=== PATIENT | male | born 1955 | race Caucasian/White ===

== ENCOUNTER 2022-08-19 16:17 | Inpatient (IN) ==
--- NOTE | 2022-08-19 18:20 | XRay Report ---
XR chest 1V not portable CLINICAL HISTORY: Chest pain, nonspecific TECHNIQUE: Single frontal radiograph of the chest was obtained. Comparison: None available at the time of this dictation. FINDINGS: No lines and tubes are seen. The cardiomediastinal silhouette is normal. The lungs are clear. No evid ence of pleural effusion or pneumothorax. IMPRESSION: No acute chest disease. ACT 112: Negative or not required by law. Electronically signed by: Bulmaro Aldana M.D. 08/19/2022 6:19 PM
[2022-08-19 18:36] LABS: Hematocrit (blood only) 39.9 % (42.0-52.0); Hemoglobin 14.1 g/dl (14.0-18.0); Mean Corpuscular Hemoglobin 29.6 pg (25.0-34.0); Mean Corpuscular Hgb Conc 35.3 g/dL (32.0-36.0); Mean Corpuscular Volume 83.8 fL (80.0-100.0); Mean Platelet Volume 12.4 fL (9.4-12.4); Platelet Count 111 K/uL (130-400); RDW Coefficient of Variation 13.6 % (11.5-14.5); RDW Standard Deviation 41.9 fL (36.4-46.3); Red Blood Count 4.76 M/uL (4.70-6.10); White Blood Count 5.84 K/ul (4.8-10.8)
[2022-08-19 18:47] LABS: Albumin Globulin Ratio 1.1 (0.9-2); BUN Creatinine Ratio 12.7 (10-20); Bilirubin,Total 0.7 mg/dl (0.2-1.0); Calcium 9.5 mg/dl (8.6-10.3); Creatinine Clr Calc Pharmacy 60.3 ml/min; Est GFR (African American) 60.1 ml/min; Est GFR (Non-African American) 51.8 ml/min; Globulin 3.8 gm/dl (2.5-4.0); Total Protein 7.8 gm/dl (6.0-8.3)
[2022-08-19 18:53] LABS: Troponin I High Sensitivity 7.8 pg/ml (0-20)
[2022-08-19 19:13] LABS: Appearance Urine Clear (Clear); Bacteria Urine Automated Negative (Negative); Blood Urine Negative (Negative); Color Urine Orange; Glucose Urine UA Negative (Negative); Ketones Urine Trace (Negative); Leukocyte Esterase Urine Trace (Negative); Nitrite Urine Positive (Negative); Protein Urine 1+ (Negative); RBC Urine Automated 0-4 /hpf (0-4); Specific Gravity Urine 1.032 (1.000-1.030); Urobilinogen Urine Negative (Negative); pH Urine 5.5 (4.5-7.5)
[2022-08-19] MEDS ORDERED: SODIUM CHLORIDE 0.9% 1000ML 1,000 ML IV ONE ×2 (19:21→22:24)
[2022-08-19 19:34] LABS: Basophils # (auto) 0.06 K/uL (0-0.2); Eosinophils # (auto) 0.04 K/uL (0-0.50); Eosinophils % (auto) 0.7 %; Immature Granulocytes # (auto) 0.01 K/uL (0.01-0.20); Immature Granulocytes % (auto) 0.2 %; Lymphocytes % (auto) 70.2 %; Monocytes # (auto) 0.35 K/uL (0.11-0.59); Neutrophils # (auto) 1.28 K/uL (1.40-6.50); Neutrophils % (auto) 21.9 %
--- NOTE | 2022-08-19 19:40 | Emergency Department Note ---
Impression & Plan Weakness, Hypomagnesemia, Thrombocytopenia, WALLY (acute kidney injury) ED Provider Note NAME: GORDON DIALLO AGE: 66 SEX: M : 1955 ARRIVES VIA: Walk-In INFORMANT: [Patient] ED PROVIDER(S): [Kermit Russ MD] CHIEF COMPLAINT: Cardiac assessment HISTORY OF PRESENT ILLNESS: The patient is a 66-year-old male who presents to the ED with complaints of potential dehydration. His legs feel weak, his urine is dark. He has had some chills and sweats. There has been no cough or congestion. He is not short of breath. No abdominal pain. No vomiting or diarrhea although, he has no appetite. The patient was discharged from [facility] yesterday. He was admitted for 3 days because of dehydration, an elevated creatinine and low platelets. The patient presents today because he feels like he is again getting worse. He states no real reason for his findings was found by the [facility]. PMHx/PSHx: See Below SOCIAL HISTORY: See Below. PHYSICAL EXAM: GENERAL: Patient is in no acute distress. HEENT: No acute trauma, normocephalic atraumatic, mucous membranes moist, no n danae congestion. NECK: No stridor, no adenopathy, no meningismus, trachea is midline. LUNGS: Clear to auscultation bilaterally, no wheeze, no rhonchi, breath sounds equal. HEART: Without murmurs gallops or rubs, regular rate and rhythm. ABDOMEN: Soft, nontender, bowel sounds positive, no peritonitis. EXTREMITIES: No cyanosis or edema, full range of motion of all the joints without pain or difficulty, no signs for acute trauma. NEUROLOGIC: Oriented x 3, no acute motor or sensory deficits, no focal weakness. SKIN: No rash, no jaundice, no diaphoresis. DIFFERENTIAL DIAGNOSIS: Anaplasmosis, tickborne illness, dehydration, electrolyte imbalance, UTI, renal or liver failure, among others. EMERGENCY DEPARTMENT COURSE/PROCEDURES: Prior/Outside records reviewed: None. ECG per my interpretation: Indication was weakness. The ECG shows a normal sinus rhythm with a rate of 92. There is no ST elevation, no PVCs. The QTc is 413. Continuous Cardiac Monitoring per my interpretation: An order was placed for continuous cardiac monitoring. The monitor shows a rate of 87 with normal sinus rhythm. MEDICAL DECISION MAKING: There is no leukocytosis or concerning anemia. Platelet count is low at 111. No coagulopathy. Sodium slightly low at 132. There was some mild acute kidney injury with a creatinine of 1.42. Magnesium was low at 1.6. AST was slightly e levated, the bilirubin was normal. Total CK was not elevated making rhabdomyolysis unlikely. ECG showed a normal sinus rhythm, no ST elevation. Cardiac enzyme testing x1 is not consistent with acute cardiac injury. Urinalysis showed an orange-colored urine that was nitrite positive. No white cells or bacteria to suggest infection. Anaplasmosis and Babesia smears were negative. Send out testing for anaplasmosis and Babesia is pending. Lyme disease testing returned negative. Chest x-ray did not show mediastinal widening, pneumonia or pneumothorax per my review. The patient was given IV saline, 1 L. He was given IV lactated Ringer's, 1 L. He was given IV doxycycline and IV magnesium. The patient presents with fever, weakness. He does have some electrolyte abnormalities and some mild acute kidney injury. With his fever history, with the lower platelet count, I am concerned about the possibility of anaplasmosis. Patient is in no condition for discharge home. He just left [facility] yesterday. I did speak with the patient at length, I spoke with case management, the on-call hospitalist was consulted. DISPOSITION: The patient's presentation and findings warrant a hospital stay. Past Med/Surg History Medical History Acquired thrombocytopenia WALLY (acute kidney injury) Social History Smoking Status: Never smoker Feels Safe at Home: Yes Allergies Allergies Allergy/AdvReac Type Severity Reaction Status Date / Time Penicillins Allergy Severe Anaphylaxis Unverified 08/19/22 19:17 Sulfa (Sulfonamide Allergy Severe Gastrointestinal Unverified 08/19/22 19:17 Antibiotics) Upset Home Meds Home Medications Medication Instructions Recorded Confirmed carvedilol 3.125 mg tablet (Coreg) 3.125 mg PO BID 08/19/22 08/19/22 cyanocobalamin (vitamin B-12) 1,000 mcg sublingual DAILY 08/19/22 08/19/22 1,000 mcg sublingual tablet omeprazole 20 mg capsule,delayed 20 mg PO BID 08/19/22 08/19/22 release Results & Data (ED) Vital Signs Vital Signs - 24 hr 08/19/22 16:51 08/19/22 18:52 08/19/22 18:52 Temperature 37.2 C Temperature Source Temporal Artery Scan Pulse Rate 97 H Pulse Rate from SpO2 Sensor Respiratory Rate 18 15 Respiratory Effort / Characteristics Non-Labored Spontaneous Respiratory Depth Normal Respiratory Pattern Regular Blood Pressure 129/78 Blood Pressure Mean 95 Blood Pressure Position Sitting Pulse Oximetry 98 97 98 Oxygen Delivery Method Room Air Room Air Oxygen Flow Rate 0 Sepsis Recent Fever Within 48 Hours No Sepsis New/Unexplained Change in Mental Status N/A Sepsis Action Taken by Nursing No Action Required 08/19/22 18:56 08/19/22 18:57 08/19/22 19:00 Temperature Temperature Source Pulse Rate 85 Pulse Rate from SpO2 Sensor Respiratory Rate 19 Respiratory Effort / Characteristics Respiratory Depth Respiratory Pattern Blood Pressure 131/78 126/84 Blood Pressure Mean 113 99 Blood Pressure Position Pulse Oximetry Oxygen Delivery Method Oxygen Flow Rate Sepsis Recent Fever Within 48 Hours Sepsis New/Unexplained Change in Mental Status Sepsis Action Taken by Nursing 08/19/22 19:00 08/19/22 19:10 08/19/22 19:20 Temperature Temperature Source Pulse Rate 87 84 90 Pulse Rate from SpO2 Sensor 85 84 Respiratory Rate 18 19 22 Respiratory Effort / Characteristics Respiratory Depth Respiratory Pattern Blood Pressure Blood Pressure Mean Blood Pressure Position Pulse Oximetry 95 94 Oxygen Delivery Method Oxygen Flow Rate Sepsis Recent Fever Within 48 Hours Sepsis New/Unexplained Change in Mental Status Sepsis Action Taken by Nursing 08/19/22 19:30 08/19/22 19:30 08/19/22 19:40 Temperature Temperature Source Pulse Rate 87 83 Pulse Rate from SpO2 Sensor 88 83 Respiratory Rate 21 16 Respiratory Effort / Characteristics Respiratory Depth Respiratory Pattern Blood Pressure 126/98 Blood Pressure Mean 100 Blood Pressure Position Pulse Oximetry 95 95 Oxygen Delivery Method Oxygen Flow Rate Sepsis Recent Fever Within 48 Hours Sepsis New/Unexplained Change in Mental Status Sepsis Action Taken by Nursing 08/19/22 19:50 08/19/22 20:00 08/19/22 20:00 Temperature Temperature Source Pulse Rate 80 79 Pulse Rate from SpO2 Sensor 79 78 Respiratory Rate 21 23 Respiratory Effort / Characteristics Respiratory Depth Respiratory Pattern Blood Pressure 128/78 Blood Pressure Mean 87 Blood Pressure Position Pulse Oximetry 96 96 Oxygen Delivery Method Oxygen Flow Rate Sepsis Recent Fever Within 48 Hours Sepsis New/Unexplained Change in Mental Status Sepsis Action Taken by Nursing 08/19/22 20:10 08/19/22 20:20 08/19/22 20:30 Temperature Temperature Source Pulse Rate 78 81 Pulse Rate from SpO2 Sensor 78 80 Respiratory Rate 18 23 Respiratory Effort / Characteristics Respiratory Depth Respiratory Pattern Blood Pressure 129/76 Blood Pressure Mean 88 Blood Pressure Position Pulse Oximetry 94 95 Oxygen Delivery Method Oxygen Flow Rate Sepsis Recent Fever Within 48 Hours Sepsis New/Unexplained Change in Mental Status Sepsis Action Taken by Nursing 08/19/22 20:30 08/19/22 20:40 08/19/22 20:50 Temperature Temperature Source Pulse Rate 79 80 82 Pulse Rate from SpO2 Sensor 80 80 81 Respiratory Rate 21 21 24 Respiratory Effort / Characteristics Respiratory Depth Respiratory Pattern Blood Pressure Blood Pressure Mean Blood Pressure Position Pulse Oximetry 94 93 92 Oxygen Delivery Method Oxygen Flow Rate Sepsis Recent Fever Within 48 Hours Sepsis New/Unexplained Change in Mental Status Sepsis Action Taken by Jail Medications Current Medication List: was personally reviewed by me Laboratory Data Attestation: I reviewed the patient's lab results. 08/19/22 18:13 08/19/22 18:13 Lab Results 08/19/22 08/19/22 08/19/22 Range/Units 18:05 18:13 18:13 WBC 5.84 (4.8-10.8) K/ul RBC 4.76 (4.70-6.10) M/uL Hgb 14.1 (14.0-18.0) g/dl Hct 39.9 L (42.0-52.0) % MCV 83.8 (80.0-100.0) fL MCH 29.6 (25.0-34.0) pg MCHC 35.3 (32.0-36.0) g/dL RDW Std Deviation 41.9 (36.4-46.3) fL RDW Coeff of Sergio 13.6 (11.5-14.5) % Plt Count 111 L (130-400) K/uL MPV 12.4 (9.4-12.4) fL Immature Gran % (Auto) 0.2 % Neut % (Auto) 21.9 % Lymph % (Auto) 70.2 % [place] % (Auto) 6.0 % Eos % (Auto) 0.7 % Baso % (Auto) 1.0 % Neut # (Auto) 1.28 L (1.40-6.50) K/uL Lymph # (Auto) 4.10 H (1.2-3.4) K/uL [place] # (Auto) 0.35 (0.11-0.59) K/uL Eos # (Auto) 0.04 (0-0.50) K/uL Baso # (Auto) 0.06 (0-0.2) K/uL Immature Gran # (Auto) 0.01 (0.01-0.20) K/uL PT Cancelled INR Cancelled APTT Cancelled PTT Ratio Cancelled Sodium 132 L (136-145) mmol/L Potassium 4.0 (3.5-5.1) mmol/L Chloride 100 (98-107) mmol/L Carbon Dioxide 23 (21-32) mmol/L Anion Gap 9 (3-11) BUN 18 (6-23) mg/dl Creatinine 1.42 H (0.6-1.4) mg/dl Est Cr Clr Drug Dosing 60.3 ml/min Est GFR ( Amer) 60.1 ml/min Est GFR (Non-Af Amer) 51.8 ml/min BUN/Creatinine Ratio 12.7 (10-20) Glucose 115 H (70-99(Fasting)) mg/dl Calcium 9.5 (8.6-10.3) mg/dl Magnesium (1.7-2.4) mg/dl Total Bilirubin 0.7 (0.2-1.0) mg/dl AST 58 H (13-39) U/L ALT 34 (7-52) U/L Alkaline Phosphatase 73 (34-104) U/L Total Creatine Kinase (30-223) U/L Troponin I High Sens 7.8 (0-20) pg/ml Total Protein 7.8 (6.0-8.3) gm/dl Albumin 4.0 (3.4-5.0) gm/dl Globulin 3.8 (2.5-4.0) gm/dl Albumin/Globulin Ratio 1.1 (0.9-2) Urine Color Urine Appearance (Clear) Urine pH (4.5-7.5) Ur Specific [place] (1.000-1.030) Urine Protein (Negative) Urine Glucose (UA) (Negative) Urine Ketones (Negative) Urine Blood (Negative) Urine Nitrite (Negative) Urine Bilirubin (Negative) Urine Urobilinogen (Negative) Ur Leukocyte Esterase (Negative) Urine WBC (Auto) (0-5) /hpf Urine RBC (Auto) (0-4) /hpf U Hyaline Cast (Auto) (0-5) /lpf U Epithel Cells (Auto) (0-5) /lpf Urine Bacteria (Auto) (Negative) Anaplasma Smear Babesia Smear Lyme Disease IgG Ab (Negative) Lyme Disease IgM Ab (Negative) 08/19/22 08/19/22 08/19/22 Range/Units 18:13 19:00 19:32 WBC (4.8-10.8) K/ul RBC (4.70-6.10) M/uL Hgb (14.0-18.0) g/dl Hct (42.0-52.0) % MCV (80.0-100.0) fL MCH (25.0-34.0) pg MCHC (32.0-36.0) g/dL RDW Std Deviation (36.4-46.3) fL RDW Coeff of Sergio (11.5-14.5) % Plt Count (130-400) K/uL MPV (9.4-12.4) fL Immature Gran % (Auto) % Neut % (Auto) % Lymph % (Auto) % [place] % (Auto) % Eos % (Auto) % Baso % (Auto) % Neut # (Auto) (1.40-6.50) K/uL Lymph # (Auto) (1.2-3.4) K/uL [place] # (Auto) (0.11-0.59) K/uL Eos # (Auto) (0-0.50) K/uL Baso # (Auto) (0-0.2) K/uL Immature Gran # (Auto) (0.01-0.20) K/uL PT 11.9 INR 1.1 APTT 25.7 PTT Ratio 0.9 Sodium (136-145) mmol/L Potassium (3.5-5.1) mmol/L Chloride (98-107) mmol/L Carbon Dioxide (21-32) mmol/L Anion Gap (3-11) BUN (6-23) mg/dl Creatinine (0.6-1.4) mg/dl Est Cr Clr Drug Dosing ml/min Est GFR ( Amer) ml/min Est GFR (Non-Af Amer) ml/min BUN/Creatinine Ratio (10-20) Glucose (70-99(Fasting)) mg/dl Calcium (8.6-10.3) mg/dl Magnesium (1.7-2.4) mg/dl Total Bilirubin (0.2-1.0) mg/dl AST (13-39) U/L ALT (7-52) U/L Alkaline Phosphatase (34-104) U/L Total Creatine Kinase (30-223) U/L Troponin I High Sens (0-20) pg/ml Total Protein (6.0-8.3) gm/dl Albumin (3.4-5.0) gm/dl Globulin (2.5-4.0) gm/dl Albumin/Globulin Ratio (0.9-2) Urine Color [place] Urine Appearance Clear (Clear) Urine pH 5.5 (4.5-7.5) Ur Specific [place] 1.032 H (1.000-1.030) Urine Protein 1+ H (Negative) Urine Glucose (UA) Negative (Negative) Urine Ketones Trace H (Negative) Urine Blood Negative (Negative) Urine Nitrite Positive A (Negative) Urine Bilirubin 1+ H (Negative) Urine Urobilinogen Negative (Negative) Ur Leukocyte Esterase Trace H (Negative) Urine WBC (Auto) 1-5 (0-5) /hpf Urine RBC (Auto) 0-4 (0-4) /hpf U Hyaline Cast (Auto) 10-30 H (0-5) /lpf U Epithel Cells (Auto) 10-20 H (0-5) /lpf Urine Bacteria (Auto) Negative (Negative) Anaplasma Smear See Comment Babesia Smear See Comment Lyme Disease IgG Ab (Negative) Lyme Disease IgM Ab (Negative) 08/19/22 08/19/22 Range/Units 19:32 19:32 WBC (4.8-10.8) K/ul RBC (4.70-6.10) M/uL Hgb (14.0-18.0) g/dl Hct (42.0-52.0) % MCV (80.0-100.0) fL MCH (25.0-34.0) pg MCHC (32.0-36.0) g/dL RDW Std Deviation (36.4-46.3) fL RDW Coeff of Sergio (11.5-14.5) % Plt Count (130-400) K/uL MPV (9.4-12.4) fL Immature Gran % (Auto) % Neut % (Auto) % Lymph % (Auto) % [place] % (Auto) % Eos % (Auto) % Baso % (Auto) % Neut # (Auto) (1.40-6.50) K/uL Lymph # (Auto) (1.2-3.4) K/uL [place] # (Auto) (0.11-0.59) K/uL Eos # (Auto) (0-0.50) K/uL Baso # (Auto) (0-0.2) K/uL Immature Gran # (Auto) (0.01-0.20) K/uL PT INR APTT PTT Ratio Sodium (136-145) mmol/L Potassium (3.5-5.1) mmol/L Chloride (98-107) mmol/L Carbon Dioxide (21-32) mmol/L Anion Gap (3-11) BUN (6-23) mg/dl Creatinine (0.6-1.4) mg/dl Est Cr Clr Drug Dosing ml/min Est GFR ( Amer) ml/min Est GFR (Non-Af Amer) ml/min BUN/Creatinine Ratio (10-20) Glucose (70-99(Fasting)) mg/dl Calcium (8.6-10.3) mg/dl Magnesium 1.6 L (1.7-2.4) mg/dl Total Bilirubin (0.2-1.0) mg/dl AST (13-39) U/L ALT (7-52) U/L Alkaline Phosphatase (34-104) U/L Total Creatine Kinase 113 (30-223) U/L Troponin I High Sens (0-20) pg/ml Total Protein (6.0-8.3) gm/dl Albumin (3.4-5.0) gm/dl Globulin (2.5-4.0) gm/dl Albumin/Globulin Ratio (0.9-2) Urine Color Urine Appearance (Clear) Urine pH (4.5-7.5) Ur Specific [place] (1.000-1.030) Urine Protein (Negative) Urine Glucose (UA) (Negative) Urine Ketones (Negative) Urine Blood (Negative) Urine Nitrite (Negative) Urine Bilirubin (Negative) Urine Urobilinogen (Negative) Ur Leukocyte Esterase (Negative) Urine WBC (Auto) (0-5) /hpf Urine RBC (Auto) (0-4) /hpf U Hyaline Cast (Auto) (0-5) /lpf U Epithel Cells (Auto) (0-5) /lpf Urine Bacteria (Auto) (Negative) Anaplasma Smear Babesia Smear Lyme Disease IgG Ab Negative (Negative) Lyme Disease IgM Ab Negative (Negative) Administered Medications Lactated Ringer's (Lr) 1,000 mls @ 999 mls/hr IV .Q1H1M ONE Stop: 08/19/22 22:34 Last Admin: 08/19/22 21:46 Dose: 999 mls/hr Documented By: CIRA Discontinued Medications Sodium Chloride (Nss 1000ml) 1,000 mls @ 999 mls/hr IV .Q1H1M ONE Stop: 08/19/22 20:21 Last Infusion: 08/19/22 20:39 Dose: 0 mls/hr Documented By: Admin: 08/19/22 19:34 Dose: 999 mls/hr Documented By: CIRA Magnesium Sulfate/Dextrose (Magnesium Sulfate / D5w) 1 gm in 100 mls @ 100 mls/hr IV NOW STA Stop: 08/19/22 21:15 Last Infusion: 08/19/22 21:31 Dose: 0 mls/hr Documented By: Admin: 08/19/22 20:30 Dose: 100 mls/hr Documented By: CIRA Imaging Data Radiologist's Impression: Chest X-Ray 08/19/22 16:59 XR chest 1V not portable CLINICAL HISTORY: Chest pain, nonspecific TECHNIQUE: Single frontal radiograph of the chest was obtained. Comparison: None available at the time of this dictation. FINDINGS: No lines and tubes are seen. The cardiomediastinal silhouette is normal. The lungs are clear. No evidence of pleural effusion or pneumothorax. IMPRESSION: No acute chest disease. ACT 112: Negative or not required by law. Electronically signed by: Bulmaro Aldana M.D. 08/19/2022 6:19 PM Discharge Plan Visit Data Chief Complaint: Cardiac Assessment Stated Complaint: NEAR SYNCOPE,CHEST ISSUES,CHANGE MEDS ED Provider: Kermit Russ Discharge Problem: Weakness, Hypomagnesemia, Thrombocytopenia, WALLY (acute kidney injury) Patient Disposition: Admitted As Inpatient Condition: Fair Forms Stand Alone Forms: My [facility] Prescriptions Prescriptions: No Action carvedilol [Coreg] 3.125 mg Tablet 3.125 mg PO BID Rx Instructions: must administer with a meal/food omeprazole 20 mg Capsule,Delayed Release(Dr/Ec) 20 mg PO BID cyanocobalamin (vitamin B-12) [Vitamin B-12] 1,000 mcg Tablet, Sublingual 1,000 mcg SUBLINGUAL DAILY Referrals Referrals: PCP,NO [Physician] -
[2022-08-19 20:10] LABS: Bilirubin Urine 1+ (Negative)
[2022-08-19 20:15] LABS: Magnesium 1.6 mg/dl (1.7-2.4)
[2022-08-19] MEDS ORDERED: MAGNESIUM SULFATE / D5W 1 GM/100 ML BAG IV STA (20:16)
[2022-08-19 20:30] LABS: INR 1.1 (0.9-1.1); Partial Thromboplastin Ratio 0.9; Partial Thromboplastin Time 25.7 Seconds (21.0-31.0); Prothrombin Time 11.9 Seconds (9.0-12.0)
[2022-08-19 20:39] LABS: Lyme Ab IgG w/WB Rflx Negative (Negative); Lyme Ab IgM w/WB Rflx Negative (Negative)
[2022-08-19] MEDS ORDERED: LACTATED RINGER'S 1,000 ML IV ONE (21:34)
[2022-08-19] MEDS ORDERED: DOXYCYCLINE HYCLATE 100 MG in DEXTROSE 5% 100 ML IV STA (21:34)
[2022-08-19] MEDS ORDERED: cefTRIAXone SODIUM 2,000 MG/70 ML BAG IV STA (23:56)
--- NOTE | 2022-08-20 00:18 | History & Physical Report ---
Date of Service August 20, 2022 Assessment & Plan (1) Complicated UTI (urinary tract infection): Plan: No overt sepsis for now Mild hyponatremia, ARF secondary to illness PSVT, currently on Coreg HCV status post Rx GERD/Ramirez's esophagus, stable on regimen chronic thrombocytopenia secondary to cirrhosis Hyperglycemia rule out DM GMF CS, Ceftriaxone Monitor creatinine response to IVF Check hemoglobin A1c PT OT eval DVT prophylaxis. SCDs Re: Thrombocytopenia Full code Text document was generated using [employer] voice recognition software. It may contain grammatical or spelling errors. Kindly contact undersigned for clarification of any documentation item in question. History of Present Illness Chief Complaint: Bilateral leg weakness, chills, sweats Primary Care Provider: Edgardo Milner PA-C History obtained from patient and records. Medical history significant for PSVT, HCV status post Rx, GERD/Ramirez's esophagus, chronic thrombocytopenia. Recent confinement at [facility] August 15 to 2022 for PSVT. Patient started on Coreg. Lisinopril stopped on discharge. Outpatient Zio patch recommended. Yesterday morning, patient noted chills, sweats, bilateral LE weakness. No headache, no chest pain, no SOB, no belly pain. Denies dysuria. Tick bite a few weeks ago. Patient consulted ER. Doxycycline given for possible tickborne infection. Medical History as above Surgical History : Multiple right tibia/fibula surgeries, myringotomy, tonsillectomy/adenectomy, umbilical hernia repair, Family History : Heart disease, lung cancer, Parkinson's Personal/Social history : Non-smoker, no EtOH intake, [employer] employee Allergies Allergy/AdvReac Type Severity Reaction Status Date / Time Penicillins Allergy Severe Anaphylaxis Verified 08/20/22 00:59 Sulfa (Sulfonamide Allergy Severe Gastrointestinal Unverified 08/19/22 19:17 Antibiotics) Upset Home Medications Medication Instructions Recorded Confirmed Type carvedilol 3.125 mg tablet (Coreg) 3.125 mg PO BID 08/19/22 08/19/22 History cyanocobalamin (vitamin B-12) 1,000 mcg sublingual DAILY 08/19/22 08/19/22 History 1,000 mcg sublingual tablet omeprazole 20 mg capsule,delayed 20 mg PO BID 08/19/22 08/19/22 History release Past Med/Surg History Medical History Acquired thrombocytopenia WALLY (acute kidney injury) Social History Smoking Status: Never smoker Hx Alcohol Use: No Hx Substance Use: No Preferred Language: Telugu Communication Ability: Effective Client Success Specialist Required: No Beliefs That Will Affect Care: Restoration Restoration Beliefs: Confucianism Current Living Situation: Spouse Feels Safe at Home: Yes Safety Concerns: Feels Safe At This Time Assistive Devices: None Review of Systems Review of Systems: As per HPI, all other systems reviewed and negative Physical Exam Physical Exam: GENERAL: Comfortable, slightly anxious, obese, no respiratory distress SKIN: Pallor, warm HEENT: Alopecia, pale palpebral conjunctivae, no ptosis, dry buccal mucosa NECK : Supple, short neck, no tenderness CHEST : CTA, no tenderness HEART : RRR, no obvious murmurs ABDOMEN: Some distention, nontender EXTREMITIES : No LE swelling/tenderness, no other conspicuous deformities noted NEUROLOGIC : Coherent, no facial asymmetry, no other gross focality Results & Data Results & Data Vital Signs (Past 12 Hours) Vital Signs Temp Pulse Resp BP Pulse Ox O2 Del Method O2 Flow Rate 08/20/22 00:00 77 21 126/73 96 08/19/22 23:30 75 24 94 08/19/22 22:30 78 15 94 08/19/22 22:30 134/75 08/19/22 22:20 74 15 93 08/19/22 22:10 75 23 93 08/19/22 22:00 75 15 92 08/19/22 22:00 134/80 08/19/22 21:50 77 24 92 08/19/22 21:40 75 15 92 08/19/22 21:30 80 23 93 08/19/22 21:30 120/71 08/19/22 21:20 81 15 93 08/19/22 21:10 78 15 92 08/19/22 21:00 79 20 92 08/19/22 21:00 133/76 08/19/22 20:50 82 24 92 08/19/22 20:40 80 21 93 08/19/22 20:30 79 21 94 08/19/22 20:30 129/76 08/19/22 20:20 81 23 95 08/19/22 20:10 78 18 94 08/19/22 20:00 79 23 96 08/19/22 20:00 128/78 08/19/22 19:50 80 21 96 08/19/22 19:40 83 16 95 08/19/22 19:30 87 21 95 08/19/22 19:30 126/98 08/19/22 19:20 90 22 08/19/22 19:10 84 19 94 08/19/22 19:00 87 18 95 08/19/22 19:00 126/84 08/19/22 18:57 85 19 08/19/22 18:56 131/78 08/19/22 18:52 15 98 08/19/22 18:52 97 Room Air 0 08/19/22 16:51 37.2 C 97 H 18 129/78 98 Room Air Laboratory Results Laboratory Results WBC 5.84 K/ul (4.8-10.8) 08/19/22 18:13 RBC 4.76 M/uL (4.70-6.10) 08/19/22 18:13 Hgb 14.1 g/dl (14.0-18.0) 08/19/22 18:13 Hct 39.9 % (42.0-52.0) L 08/19/22 18:13 MCV 83.8 fL (80.0-100.0) 08/19/22 18:13 MCH 29.6 pg (25.0-34.0) 08/19/22 18:13 MCHC 35.3 g/dL (32.0-36.0) 08/19/22 18:13 RDW Std Deviation 41.9 fL (36.4-46.3) 08/19/22 18:13 RDW Coeff of Sergio 13.6 % (11.5-14.5) 08/19/22 18:13 Plt Count 111 K/uL (130-400) L 08/19/22 18:13 MPV 12.4 fL (9.4-12.4) 08/19/22 18:13 Immature Gran % (Auto) 0.2 % 08/19/22 18:13 Neut % (Auto) 21.9 % 08/19/22 18:13 Lymph % (Auto) 70.2 % 08/19/22 18:13 Benzie % (Auto) 6.0 % 08/19/22 18:13 Eos % (Auto) 0.7 % 08/19/22 18:13 Baso % (Auto) 1.0 % 08/19/22 18:13 Neut # (Auto) 1.28 K/uL (1.40-6.50) L 08/19/22 18:13 Lymph # (Auto) 4.10 K/uL (1.2-3.4) H 08/19/22 18:13 Benzie # (Auto) 0.35 K/uL (0.11-0.59) 08/19/22 18:13 Eos # (Auto) 0.04 K/uL (0-0.50) 08/19/22 18:13 Baso # (Auto) 0.06 K/uL (0-0.2) 08/19/22 18:13 Immature Gran # (Auto) 0.01 K/uL (0.01-0.20) 08/19/22 18:13 PT 11.9 Seconds (9.0-12.0) 08/19/22 19:32 INR 1.1 (0.9-1.1) 08/19/22 19:32 APTT 25.7 Seconds (21.0-31.0) 08/19/22 19:32 PTT Ratio 0.9 08/19/22 19:32 Sodium 132 mmol/L (136-145) L 08/19/22 18:13 Potassium 4.0 mmol/L (3.5-5.1) 08/19/22 18:13 Chloride 100 mmol/L (98-107) 08/19/22 18:13 Carbon Dioxide 23 mmol/L (21-32) 08/19/22 18:13 Anion Gap 9 (3-11) 08/19/22 18:13 BUN 18 mg/dl (6-23) 08/19/22 18:13 Creatinine 1.42 mg/dl (0.6-1.4) H 08/19/22 18:13 Est Cr Clr Drug Dosing 60.3 ml/min 08/19/22 18:13 Est GFR ( Amer) 60.1 ml/min 08/19/22 18:13 Est GFR (Non-Af Amer) 51.8 ml/min 08/19/22 18:13 BUN/Creatinine Ratio 12.7 (10-20) 08/19/22 18:13 Glucose 115 mg/dl (70-99(Fasting)) H 08/19/22 18:13 Calcium 9.5 mg/dl (8.6-10.3) 08/19/22 18:13 Magnesium 1.6 mg/dl (1.7-2.4) L 08/19/22 19:32 Total Bilirubin 0.7 mg/dl (0.2-1.0) 08/19/22 18:13 AST 58 U/L (13-39) H 08/19/22 18:13 ALT 34 U/L (7-52) 08/19/22 18:13 Alkaline Phosphatase 73 U/L (34-104) 08/19/22 18:13 Total Creatine Kinase 113 U/L (30-223) 08/19/22 19:32 Troponin I High Sens 7.8 pg/ml (0-20) 08/19/22 18:13 Total Protein 7.8 gm/dl (6.0-8.3) 08/19/22 18:13 Albumin 4.0 gm/dl (3.4-5.0) 08/19/22 18:13 Globulin 3.8 gm/dl (2.5-4.0) 08/19/22 18:13 Albumin/Globulin Ratio 1.1 (0.9-2) 08/19/22 18:13 TSH 3.875 uIu/ml (0.300-4.500) 08/19/22 19:32 Urine Color Real 08/19/22 19:00 Urine Appearance Clear (Clear) 08/19/22 19:00 Urine pH 5.5 (4.5-7.5) 08/19/22 19:00 Ur Specific [place] 1.032 (1.000-1.030) H 08/19/22 19:00 Urine Protein 1+ (Negative) H 08/19/22 19:00 Urine Glucose (UA) Negative (Negative) 08/19/22 19:00 Urine Ketones Trace (Negative) H 08/19/22 19:00 Urine Blood Negative (Negative) 08/19/22 19:00 Urine Nitrite Positive (Negative) A 08/19/22 19:00 Urine Bilirubin 1+ (Negative) H 08/19/22 19:00 Urine Urobilinogen Negative (Negative) 08/19/22 19:00 Ur Leukocyte Esterase Trace (Negative) H 08/19/22 19:00 Urine WBC (Auto) 1-5 /hpf (0-5) 08/19/22 19:00 Urine RBC (Auto) 0-4 /hpf (0-4) 08/19/22 19:00 U Hyaline Cast (Auto) 10-30 /lpf (0-5) H 08/19/22 19:00 U Epithel Cells (Auto) 10-20 /lpf (0-5) H 08/19/22 19:00 Urine Bacteria (Auto) Negative (Negative) 08/19/22 19:00 Anaplasma Smear See Comment 08/19/22 18:13 Babesia Smear See Comment 08/19/22 18:13 Lyme Disease IgG Ab Negative (Negative) 08/19/22 19:32 Lyme Disease IgM Ab Negative (Negative) 08/19/22 19:32 SARS-CoV-2, RNA, NAAT NEGATIVE (NEGATIVE) 08/19/22 21:40 Impressions Chest X-Ray 08/19/22 16:59 XR chest 1V not portable CLINICAL HISTORY: Chest pain, nonspecific TECHNIQUE: Single frontal radiograph of the chest was obtained. Comparison: None available at the time of this dictation. FINDINGS: No lines and tubes are seen. The cardiomediastinal silhouette is normal. The lungs are clear. No evidence of pleural effusion or pneumothorax. IMPRESSION: No acute chest disease. ACT 112: Negative or not required by law. Electronically signed by: Bulmaro Aldana M.D. 08/19/2022 6:19 PM Diagnostic Findings EKG as per my interpretation : Rate 90, NSR, LAD, LAFB, no ischemia
[2022-08-20] MEDS ORDERED: LORazepam 0.5 MG TAB PO PRN (03:09)
[2022-08-20] MEDS ORDERED: oxyCODONE HCL IR 5 MG TAB (IMMEDIATE RELEASE) PO PRN (03:09)
[2022-08-20] MEDS ORDERED: PROMETHAZINE HCL 12.5 MG in SODIUM CHLORIDE 0.9% 50 ML IV PRN (03:09)
[2022-08-20] MEDS ORDERED: ACETAMINOPHEN 500 MG TAB PO PRN (03:09)
[2022-08-20] MEDS: carvediloL 3.125 MG TAB PO SCH ×3 (04:14→20:15)
[2022-08-20] MEDS: PANTOprazole 40 MG TAB PO SCH ×3 (04:15→20:15)
[2022-08-20 07:03] LABS: BUN Creatinine Ratio 12.8 (10-20); Calcium 8.1 mg/dl (8.6-10.3); Creatinine Clr Calc Pharmacy 79.2 ml/min; Est GFR (African American) 82.7 ml/min; Est GFR (Non-African American) 71.4 ml/min; Magnesium 1.8 mg/dl (1.7-2.4); Potassium 4.1 mmol/L (3.5-5.1)
[2022-08-20 07:35] LABS: Hematocrit (blood only) 33.5 % (42.0-52.0); Hemoglobin 11.7 g/dl (14.0-18.0); Mean Corpuscular Hemoglobin 29.1 pg (25.0-34.0); Mean Corpuscular Hgb Conc 34.9 g/dL (32.0-36.0); Mean Corpuscular Volume 83.3 fL (80.0-100.0); Mean Platelet Volume 12.3 fL (9.4-12.4); Platelet Count 98 K/uL (130-400); RDW Coefficient of Variation 13.4 % (11.5-14.5); Red Blood Count 4.02 M/uL (4.70-6.10); White Blood Count 4.83 K/ul (4.8-10.8)
[2022-08-20] MEDS: CYANOCOBALAMIN (B-12) 500 MCG TABLET PO SCH (07:53)
[2022-08-20 07:56] LABS: ALC (manual) 3.43 K/uL (1.2-3.4); ANC (manual) 1.11 K/uL (1.4-6.5); Basophils % (manual) 2 %; Eosinophils # (manual) 0.05 K/uL (0-0.50); Eosinophils % (manual) 1 %; Lymphocytes % (manual) 27 %; Monocytes # (manual) 0.19 K/uL (0.11-0.59); Monocytes % (manual) 4 %; Neutrophils # (manual) 1.11 K/uL (1.40-6.50); Neutrophils % (manual) 23 %; Reactive Lymphocytes # (manual) 2.13 K/uL; Reactive Lymphocytes % (manual) 44 %
[2022-08-20 09:23] LABS: Estimated Average Glucose 131 mg/dl; Hemoglobin A1C 6.2 % (4.5-5.6)
--- NOTE | 2022-08-20 14:09 | Electrocardiogram Report ---
Test Reason : Blood Pressure : / mmHG Vent. Rate : 092 BPM Atrial Rate : 092 BPM P-R Int : 118 ms QRS Dur : 086 ms QT Int : 334 ms P-R-T Axes : 028 -14 013 degrees QTc Int : 413 ms Normal sinus rhythm Normal ECG No previous ECGs available Confirmed by Monster Garcia ([id number]) on 08/20/2022 2:09:04 PM Referred By: REFERRED SELF Confirmed By:Monster Garcia
--- NOTE | 2022-08-20 16:55 | Communication Note ---
Date of Service: August 20, 2022 Seen this AM. States weakness stable. Unable to stand for extended periods. UA suggestive of infection. Urine Cx pending. Continue Rocephin. Pt does not tick on him a few weeks ago. Follow tick borne testing.
[2022-08-21] MEDS ORDERED: cefTRIAXone SODIUM 2,000 MG in DEXTROSE 5% 50 ML IV SCH (01:00)
[2022-08-21 06:24] LABS: Hematocrit (blood only) 35.6 % (42.0-52.0); Hemoglobin 12.1 g/dl (14.0-18.0); Mean Corpuscular Hemoglobin 29.1 pg (25.0-34.0); Mean Corpuscular Volume 85.6 fL (80.0-100.0); Platelet Count 95 K/uL (130-400); RDW Coefficient of Variation 13.6 % (11.5-14.5); RDW Standard Deviation 42.7 fL (36.4-46.3); Red Blood Count 4.16 M/uL (4.70-6.10); White Blood Count 5.46 K/ul (4.8-10.8)
[2022-08-21 06:34] LABS: BUN Creatinine Ratio 11.2 (10-20); Calcium 8.4 mg/dl (8.6-10.3); Creatinine Clr Calc Pharmacy 74.4 ml/min; Est GFR (African American) 76.7 ml/min; Est GFR (Non-African American) 66.2 ml/min; Potassium 4.3 mmol/L (3.5-5.1)
[2022-08-21 06:47] LABS: ANC (manual) 2.62 K/uL (1.4-6.5); Basophils # (manual) 0.05 K/uL (0-0.2); Basophils % (manual) 1 %; Eosinophils # (manual) 0.16 K/uL (0-0.50); Eosinophils % (manual) 3 %; Lymphocytes % (manual) 44 %; Monocytes # (manual) 0.27 K/uL (0.11-0.59); Monocytes % (manual) 5 %; Neutrophils # (manual) 2.62 K/uL (1.40-6.50); Neutrophils % (manual) 48 %; RBC Morphology Unremarkable
[2022-08-21] MEDS: carvediloL 3.125 MG TAB PO SCH (08:51)
[2022-08-21] MEDS: PANTOprazole 40 MG TAB PO SCH (08:52)
[2022-08-21] MEDS: CYANOCOBALAMIN (B-12) 500 MCG TABLET PO SCH (08:52)
--- NOTE | 2022-08-21 12:01 | Hospitalist Progress Note ---
Date of Service August 21, 2022 Assessment & Plan (1) Complicated UTI (urinary tract infection): (2) Weakness: (3) Thrombocytopenia: (4) WALLY (acute kidney injury): (5) PSVT (paroxysmal supraventricular tachycardia): (6) Cirrhosis: (7) History of hepatitis C virus infection: (8) Hyponatremia: Plan 66yoM with PMHx of PSVT, cirrhosis, Hx of HCV infection, chronic thrombocytopenia, GERD/Ramirez's esophagus admitted with weakness in the setting of a complicated UTI. Weakness/Complicated UTI States that he was discharged from [facility] after presenting there for his symptoms but had continued weakness at work with standing. UA suggestive of infection, urine Cx pending. Notes Hx of recent tick bite as well- lyme, anaplasma testing negative Continue Rocephin PT/OT ordered today- as pt states he would like to go home Hyponatremia Stable and improving, monitor WALLY Currently resolved, not on fluids PSVT Continue coreg GERD/Ramirez's esophagitis Continue ppi Cirrhosis/Hx of HCV infection/chronic thrombocytopenia Stable DVT prophylaxis: SCDs given chronic thombocytopenia Diet: heart healthy Full code Admission and Anticipated Discharge Date Admission Date: August 20, 2022 Subjective Pt seen this AM. States he has not noticed a change in his symptoms. States that he would like to go home as he has farm animals at home to take care of. Had previously noted that he had been getting weak with extended periods of standing at work, which prompted him coming over to [place]. States he feels "caged up". Review of Systems Review of Systems: All systems reviewed & are unremarkable except as noted in Subjective Physical Exam Physical Exam: General: Alert, oriented. No acute distress Skin: No noted rashes or bruises Psych: Appropriate mood and affect Neuro: No gross deficits HEENT: NC/AT CV: RRR, Normal s1, s2. No murmurs appreciated Resp: Breath sounds clear bilaterally, no increased effort of breathing. Abdomen: Soft, nontender, nondistended. Extremities: No edema in lower extremities bilaterally, noted scarring on right leg. Results & Data Results & Data Vital Signs (Past 12 Hours) Vital Signs Temp Pulse Resp BP Pulse Ox O2 Del Method 08/21/22 08:15 Room Air 08/21/22 07:00 37.1 C 75 18 143/78 H 93 Room Air
--- NOTE | 2022-08-21 18:10 | Discharge Summary ---
Date of Service August 21, 2022 Admission HPI Per Admitting Provider History obtained from patient and records. Medical history significant for PSVT, HCV status post Rx, GERD/Ramirez's esophagus, chronic thrombocytopenia. Recent confinement at [facility] August 15 to 2022 for PSVT. Patient started on Coreg. Lisinopril stopped on discharge. Outpatient Zio patch recommended. Yesterday morning, patient noted chills, sweats, bilateral LE weakness. No headache, no chest pain, no SOB, no belly pain. Denies dysuria. Tick bite a few weeks ago. Patient consulted ER. Doxycycline given for possible tickborne infection. Medical History as above Surgical History : Multiple right tibia/fibula surgeries, myringotomy, tonsillectomy/adenectomy, umbilical hernia repair, Family History : Heart disease, lung cancer, Parkinson's Personal/Social history : Non-smoker, no EtOH intake, [employer] factory employee Principal Diagnosis UTI Discharge Exam General: Alert, oriented. No acute distress Skin: No noted rashes or bruises Psych: Appropriate mood and affect Neuro: No gross deficits HEENT: NC/AT CV: RRR, Normal s1, s2. No murmurs appreciated Resp: Breath sounds clear bilaterally, no increased effort of breathing. Abdomen: Soft, nontender, nondistended. Extremities: No edema in lower extremities bilaterally, noted scarring on right leg. Discharge Data Allergies Allergy/AdvReac Type Severity Reaction Status Date / Time Penicillins Allergy Severe Anaphylaxis Verified 08/20/22 00:59 Sulfa (Sulfonamide Allergy Severe Gastrointestinal Unverified 08/19/22 19:17 Antibiotics) Upset Consultations 08/19/22 21:40 ED Decision to Admit Stat Hospital Course (1) Complicated UTI (urinary tract infection): (2) Weakness: (3) Thrombocytopenia: (4) WALLY (acute kidney injury): (5) PSVT (paroxysmal supraventricular tachycardia): (6) Cirrhosis: (7) History of hepatitis C virus infection: (8) Hyponatremia: Plan 66yoM with PMHx of PSVT, cirrhosis, Hx of HCV infection, chronic thrombocytopenia, GERD/Ramirez's esophagus admitted with weakness in the setting of a complicated UTI. Weakness/Complicated UTI States that he was discharged from [facility] after presenting there for his symptoms but had continued weakness at work with standing. UA suggestive of infection, urine Cx pending. Not currently growing bacteria at time of discharge. Notes Hx of recent tick bite as well- lyme, anaplasma testing negative Treated with Rocephin, discharged with cefdinir for an additional 9 days. PT/OT-stated that pt is at baseline. PCP follow up Hyponatremia Stable WALLY Currently resolved PSVT Continue coreg GERD/Ramirez's esophagitis Continue ppi Cirrhosis/Hx of HCV infection/chronic thrombocytopenia Stable Total Time Total Time Spent Total Time Spent (In Minutes): >30 minutes Discharge Plan Discharge Items Patient Disposition: Home - Self-Care Reason For Visit: COMP UTI Discharge Diagnosis: UTI Condition on Discharge: Fair Activity: Per Instructions section Non-emergency contact: Primary Care Provider Call non-emergency contact if: you have any medication questions and your symptoms worsen Follow-up/Referrals: Edgardo Milner PA-C [Primary Care Provider] - Diet: Regular Addtl Attending Provider Instructions: You were seen and treated for a UTI which we believe contributed to your weakness. You were seen by physical therapy while hospitalized and they determined that you were at your baseline. We are discharging you with 9 more days of antibiotics, cefdinir 300mg BID. Please take as prescribed. Please keep follow up with your primary care provider. Pending Studies at Discharge: No Stand-Alone Forms: My [employer], Smoking Cessation Medications and DC Order Prescriptions: New cefdinir 300 mg capsule 300 mg PO BID 9 Days Qty: 18 0RF Continued carvedilol [Coreg] 3.125 mg Tablet 3.125 mg PO BID Rx Instructions: must administer with a meal/food omeprazole 20 mg Capsule,Delayed Release(Dr/Ec) 20 mg PO BID cyanocobalamin (vitamin B-12) 1,000 mcg Tablet, Sublingual 1,000 mcg SUBLINGUAL DAILY Discharge Orders: Discharge Order (Routine); Ordered 08/21/22 Ordered By: Terri Hansen Admission Data Admit Date/Time: 08/20/22 00:20 Attending Provider: Terri Hansen Admit Provider: Ramin Harrison Primary Care Provider: Edgardo Milner Other Providers: Ramin Harrison
[2022-08-24 05:03] LABS: Babesia microti DNA Not Detected (Not Detected)
== END 2022-08-21 18:22 | disposition home or self-care (01) | DRG 690 ==
LOC: ED 16:17 → 3N 08-20 00:20